=== PATIENT | male | born 1990 | race Caucasian/White ===

== ENCOUNTER 2016-09-24 04:02 | Emergency (ER) | payer OTHER ==
[2016-09-24 05:25] LABS: HEMOGLOBIN 15.3 gm/dl (14.0-17.5); RED BLOOD COUNT 5.33 M/UL (4.20-5.50); WHITE BLOOD COUNT 5.7 K/UL (4.5-11.0)
[2016-09-24 05:42] LABS: BUN/CREATININE RATIO 18 (0-10)
== END 2016-09-24 07:38 | disposition home or self-care (01) ==
LOC: ER1 04:02
PROVIDERS: Physician Assistant
DX: R10.813 Right lower quadrant abdominal tenderness (principal); R31.9 Hematuria, unspecified; R11.0 Nausea; Z88.1 Allergy status to other antibiotic agents
CPT/HCPCS: 36415; 80053; 81001; 83690; 85025; 87086; 96374; 96375; 99284; J1885; J2405; J7050; Q9962

== ENCOUNTER → 2020-07-04 | Outpatient (CLI) | payer OTHER ==
[~2020-07-04] MED LIST: IBUPROFEN800 MG PO; PROTONIX40 MG PO; ZOFRAN4 MG PO
== END ==
LOC: EXRD 10:10
DX: R07.9 Chest pain, unspecified (principal); Z13.220 Encounter for screening for lipoid disorders; R11.0 Nausea; Z13.1 Encounter for screening for diabetes mellitus
CPT/HCPCS: 71046

== ENCOUNTER → 2020-08-08 | Outpatient (CLI) | payer OTHER | LOC: KOH-I 10:36 | DX: R10.13 Epigastric pain (principal); R11.0 Nausea; K76.0 Fatty (change of) liver, not elsewhere classified | CPT/HCPCS: 76700 ==

== ENCOUNTER → 2020-08-27 | Outpatient (CLI) | payer OTHER | LOC: HEART 5 10:30 | DX: R07.9 Chest pain, unspecified (principal) ==